=== PATIENT | male | born 1980 | race Caucasian/White ===

== ENCOUNTER → 2017-03-14 | Day surgery (SDC) | payer BC ==
[~2017-03-14] MED LIST: AUGMENTIN PO; CLONIDINE HCL0.1 MG PO; METHADONE HCL10 MG PO; METHADONE PO; NO MEDICATIONS; ZANTAC PO
--- NOTE | ~2017-03-14 | OR ---
Unit #: [id number] #: [id number] Patient: BEN SHEA [id number] [address] [address] [id number] O MR#: [id number] NAME: BEN SHEA ROOM: Date of Procedure: 03/14/2017 Admission Date: 03/14/2017 Surgeon: Chance Harden M.D. : 1980 Attending Physician: Chance Harden M.D. Primary Care Physician: Tammy Dc M.D. OPERATIVE REPORT PROCEDURE PERFORMED Colonoscopy with snare polypectomy. INDICATIONS FOR PROCEDURE The patient with history of tubulovillous polyp, family history of colon cancer and polyps, undergoing evaluation with colonoscopy. MEDICATIONS Monitored anesthesia. POSTOPERATIVE FINDINGS 1. Colonoscopy completed to cecum. Prep was adequate. 2. Polyp, sigmoid colon about 1 cm, snared and sent for histopathology. 3. Previous polypectomy site in transverse colon appears to be completely normal. PLAN Repeat colonoscopy in 5 years. DESCRIPTION OF PROCEDURE The patient was explained of the procedure, risks, and benefits along with the risks and benefits of anesthesia. He was brought to the endoscopy room. Propofol anesthesia was given. Rectal exam was done, which was normal. Colonoscope was lubricated, passed up the rectum, advanced under direct vision all the way to the cecum. Cecum was identified by ileocecal valve and appendiceal orifice. I then started to pull the scope out carefully looking. Polyp seen in sigmoid colon was snared and sent for histopathology. Rest of the mucosa was normal and healthy. Previous polypectomy site noted. I retroflexed in the rectum, small hemorrhoids seen. The scope was gently pulled out. He tolerated it well. Dictated by... Augusta Rocha/ben TD: 03/14/2017 13:04 JOB #: [id number] Unit #: [id number] #: [id number] Patient: BEN SHEA OPERATIVE REPORT Page 1 of 1 X Chance Harden MD X PROCEDURE OPERATIVE NOTE
== END | disposition home or self-care (01) ==
LOC: COPS 08:45
DX: Z12.11 Encounter for screening for malignant neoplasm of colon (principal); D12.5 Benign neoplasm of sigmoid colon; F17.210 Nicotine dependence, cigarettes, uncomplicated; G47.30 Sleep apnea, unspecified; Z86.010 Personal history of colon polyps; Z80.0 Family history of malignant neoplasm of digestive organs; Z83.71 Family history of colonic polyps; Z88.8 Allergy status to other drugs, medicaments and biological substances; Z98.890 Other specified postprocedural states; Z91.19 Patient's noncompliance with other medical treatment and regimen
CPT/HCPCS: 88305